=== PATIENT | female | born 1980 | race Caucasian/White ===

== ENCOUNTER 2016-08-13 10:01 | Inpatient (IN) | payer MEDICAID ==
[~2016-08-13] VITALS: Ht 152.4 cm; Wt 68.0 kg
[2016-08-13] MEDS ORDERED: DEXT 5%/LR + PITOCIN 20UNITS/L 1,000 ML IV SCH ×2 (11:09→14:31)
[2016-08-13] MEDS ORDERED: NALOXONE HCL 0.4 MG/ML 1ML VIAL IM PRN (11:15)
[2016-08-13] MEDS ORDERED: CARBOPROST TROMETHAMINE 250 MCG/ML AMPUL IM PRN (11:15)
[2016-08-13] MEDS ORDERED: METHYLERGONOVINE MALEATE 0.2 MG/ML IM PRN (11:15)
[2016-08-13] MEDS: LACTATED RINGERS 1,000 ML IV SCH ×2 (11:59→12:43)
[2016-08-13 12:02] LABS: BASOPHILS % 0.2 % (0.0-2.0); EOSINOPHILS % 0.2 % (0.0-5.0); HEMOGLOBIN. 10.5 g/dL (12.0-16.0); MEAN CORPUSCULAR VOLUME 85.4 fL (81.0-99.0); MEAN PLATELET VOLUME 8.1 fl (7.4-10.4); MONOCYTES % 4.5 % (2.0-8.0); NEUTROPHILS % 79.1 % (40.0-76.0); PLATELET 190 x1000/uL (130-400); RED BLOOD CELL COUNT 3.63 mill/uL (4.2-5.4); RED CELL DISTRIBUTION WIDTH 14.6 % (11.6-14.6)
[2016-08-13 12:04] LABS: CLARITY URINE CLEAR (CLEAR); COLOR URINE YELLOW (YELLOW); GLUCOSE URINE NEGATIVE (NEGATIVE); KETONES URINE NEGATIVE (NEGATIVE); LEUKOCYTE ESTERASE URINE NEGATIVE (NEGATIVE); NITRITE URINE NEGATIVE (NEGATIVE); OCCULT BLOOD URINE 2+ (NEGATIVE); PH URINE 5.5 (4.5-8.0); PROTEIN URINE NEGATIVE (NEGATIVE); SPECIFIC GRAVITY URINE 1.021 (1.005-1.030); UROBILINOGEN URINE 0.2 E.U./dL (0.2-1.0)
[2016-08-13 12:11] LABS: INR 0.9; PARTIAL THROMBOPLASTIN TIME 27.6 sec (24.0-34.0); PROTHROMBIN TIME 9.5 sec
[2016-08-13 12:38] LABS: *AMPHETAMINES SCREEN URINE NEGATIVE (NEGATIVE); *BARBITURATES SCREEN URINE NEGATIVE (NEGATIVE); *BENZODIAZEPINES SCREEN URINE NEGATIVE (NEGATIVE); *COCAINE SCREEN URINE NEGATIVE (NEGATIVE); CANNABINOID URINE SCREEN NEGATIVE (NEGATIVE); METHADONE URINE SCREEN NEGATIVE (NEGATIVE); OPIATES URINE SCREEN NEGATIVE (NEGATIVE); PHENCYCLIDINE URINE SCREEN NEGATIVE (NEGATIVE)
[2016-08-13 12:57] LABS: HEPATITIS B SURFACE ANTIGEN NEGATIVE
[2016-08-13 13:00] LABS: RUBELLA IGG > 500.0 IU/mL (4.99-10)
[2016-08-13] MEDS ORDERED: MORPHINE SULFATE/PF 1MG/ML 10ML AMP ONE (13:26)
[2016-08-13] MEDS ORDERED: ONDANSETRON HCL 4MG/2ML VIAL ONE (13:27)
[2016-08-13] MEDS ORDERED: EPHEDRINE SULFATE 50MG/ML VIAL ONE (13:27)
[2016-08-13] MEDS ORDERED: CEFAZOLIN SODIUM 1000MG/VIAL ONE (13:27)
[2016-08-13] MEDS ORDERED: OXYTOCIN 10 UNITS/ML 1ML ONE (13:27)
[2016-08-13] MEDS ORDERED: BUTORPHANOL TARTRATE 2 MG/ML VIAL IM PRN (14:45)
[2016-08-13] MEDS ORDERED: RHO(D) IMMUNE GLOBULIN 300 MCG/SYR IM PRN (14:45)
[2016-08-13] MEDS ORDERED: DIPHENHYDRAMINE 50MG/ML VIAL IV PRN (14:45)
[2016-08-13] MEDS ORDERED: BISACODYL 10MG SUPP PR PRN (14:45)
[2016-08-13] MEDS ORDERED: IBUPROFEN 400MG TABLET PO PRN (14:45)
[2016-08-13] MEDS ORDERED: HYDROMORPHONE HCL/PF 2MG/ML CPJ IM PRN (14:45)
[2016-08-13 16:45] VITALS: BP 92/73
[2016-08-13 17:32] VITALS: BP 106/46
[2016-08-14] VITALS: BP 99/42
[2016-08-14] MEDS: IBUPROFEN 800MG TABLET PO PRN ×3 (00:10→21:09)
[2016-08-14 03:55] VITALS: BP 95/50
[2016-08-14 07:30] VITALS: BP 102/50
[2016-08-14 09:24] LABS: BASOPHILS % 0.2 % (0.0-2.0); EOSINOPHILS % 0.1 % (0.0-5.0); HEMATOCRIT. 31.6 % (36.0-48.0); HEMOGLOBIN. 10.7 g/dL (12.0-16.0); LYMPHOCYTES % 9.8 % (20.0-50.0); MEAN CORPUSCULAR HEMOGLOBIN 28.8 pg (28.0-32.0); MEAN CORPUSCULAR VOLUME 85.2 fL (81.0-99.0); MEAN PLATELET VOLUME 8.4 fl (7.4-10.4); MONOCYTES % 3.3 % (2.0-8.0); NEUTROPHILS % 86.6 % (40.0-76.0); PLATELET 195 x1000/uL (130-400); RED BLOOD CELL COUNT 3.71 mill/uL (4.2-5.4); RED CELL DISTRIBUTION WIDTH 14.9 % (11.6-14.6)
[2016-08-14] MEDS: ACETAMINOPHEN WITH CODEINE 300/30MG TABLET PO PRN ×2 (11:34→21:09)
[2016-08-14 19:45] VITALS: BP 118/72
[2016-08-14 23:55] VITALS: BP 100/55
[2016-08-15 03:55] VITALS: BP 95/48
[2016-08-15 08:25] VITALS: BP 121/74
[2016-08-15] MEDS: IBUPROFEN 800MG TABLET PO PRN (08:48)
[2016-08-15 12:15] VITALS: BP 116/66
== END 2016-08-15 14:40 | disposition home or self-care (01) | DRG 540 ==
LOC: OBSVTOIN 10:01 → INTOOBSV 10:01 → L&D 10:01 → 7EST PP/OB 15:09
PROVIDERS: ADMIT Obstetrics & Gynecology; ATTEND Obstetrics & Gynecology
PROC: 0U570ZZ Destruction of Bilateral Fallopian Tubes, Open Approach (ICD-10-PCS; 2016-08-13)
PROC: 10D00Z1 Extraction of Products of Conception, Low, Open Approach (ICD-10-PCS; principal; 2016-08-13 14:24)
DX: O69.1XX0 Labor and delivery complicated by cord around neck, with compression, not applicable or unspecified (principal); O34.219 Maternal care for unspecified type scar from previous cesarean delivery; Z37.0 Single live birth; Z3A.38 38 weeks gestation of pregnancy; Z82.49 Family history of ischemic heart disease and other diseases of the circulatory system; Z83.3 Family history of diabetes mellitus
CPT/HCPCS: 36415; 80305; 81001; 85025; 85610; 85730; 86592; 86703; 86762; 86850; 86900; 86920; 87340; 88302; 88307; G0378; J0171; J0690; J2274; J2405; J2590; J7120; A4315